=== PATIENT | female | born 1945 | race Caucasian/White ===

== ENCOUNTER 2017-09-02 11:32 | Observation (INO) | payer OTHER ==
[~2017-09-02] VITALS: Ht 157.5 cm; Wt 77.0 kg
[2017-09-02 12:55] LABS: HEMATOCRIT 42.3 % (36.0-46.0); MCH 29.7 PG (29.0-34.0); MCHC 33.8 G/DL (30.0-36.0); MCV 87.9 FL (83-99); MEAN PLAT.VOLUME 9.6 uM^3 (9.5-12.4); PLATELET COUNT 321 K/uL (156-360); RBC DIS.WIDTH-CV 15.6 % (11.8-14.6); RBC DIS.WIDTH-SD 50.1 % (39-53); RED BLOOD COUNT 4.81 M/uL (3.80-5.20); WHITE BLOOD COUNT 6.6 K/uL (4.1-10.2)
[2017-09-02 12:56] LABS: CHLORIDE 108 mEq/L (99-109); POTASSIUM 3.8 mEq/L (3.7-5.4); SODIUM 143 mEq/L (136-147)
[2017-09-02 12:58] LABS: GLUCOSE 88 mg/dL (70-99)
[2017-09-02 13:00] LABS: ANION GAP 8 MEQ/L (2-14); TOTAL BILIRUBIN 0.4 mg/dL (0.0-1.0)
[2017-09-02 13:02] LABS: ALKALINE PHOSPHATASE 56 IU/L (3-129); GFR ESTIMATE (CALCULATED) > 59 mL/min/
[2017-09-02 13:03] LABS: UREA NITROGEN (BUN) 7 mg/dL (9-23)
[2017-09-02 13:08] LABS: TROP-I INTERPRETATION NEGATIVE; TROPONIN-I < 0.01 ng/mL (0.0-0.30)
[2017-09-02] MEDS ORDERED: TYLENOL EXTRA500 MG PO (16:05)
[2017-09-02 16:13] VITALS: BP 159/68
[2017-09-02 18:00] VITALS: BP 137/85
[2017-09-02 19:57] LABS: TYPE OF FLUID PLEURAL
[2017-09-02 20:26] LABS: BODY FLUID LDH 91 IU/L; BODY FLUID PROTEIN 4.1 G/DL
[2017-09-02 21:00] VITALS: BP 103/67
[2017-09-02 21:38] LABS: BODY FLUID RBC'S < 1000 /MM^3 (0-100); BODY FLUID WBC'S 357 /MM^3 (0-500)
[2017-09-02 21:44] LABS: BODY FLUID EOSINOPHILS 0 % (0-25); MONONUCLEAR WBC'S 89 %; POLYNUCLEAR WBC'S 11 % (0-25)
[2017-09-02 23:33] VITALS: BP 115/64
[2017-09-03 03:15] VITALS: BP 114/96
[2017-09-03 05:28] LABS: HEMATOCRIT 40.9 % (36.0-46.0); MCHC 33.5 G/DL (30.0-36.0); MCV 89.5 FL (83-99); MEAN PLAT.VOLUME 9.7 uM^3 (9.5-12.4); PLATELET COUNT 311 K/uL (156-360); RBC DIS.WIDTH-CV 15.8 % (11.8-14.6); RBC DIS.WIDTH-SD 51.9 % (39-53); RED BLOOD COUNT 4.57 M/uL (3.80-5.20); WHITE BLOOD COUNT 7.5 K/uL (4.1-10.2)
[2017-09-03 05:59] LABS: ANION GAP 10 MEQ/L (2-14); CHLORIDE 106 MEQ/L (99-109); GFR ESTIMATE (CALCULATED) > 59 mL/min/; POTASSIUM 4.5 MEQ/L (3.7-5.4); SAMPLE HEMOLYSIS CHECK 0; SAMPLE ICTERIC CHECK 0; SAMPLE LIPEMIA CHECK 0; SODIUM 142 MEQ/L (136-147); UREA NITROGEN (BUN) 10 mg/dL (9-23)
[2017-09-03 06:01] LABS: GLUCOSE 162 mg/dL (70-99)
[2017-09-03 07:27] VITALS: BP 116/63
[2017-09-03 11:55] VITALS: BP 119/66
[2017-09-03] MEDS ORDERED: SPIRIVA1 INHALATI IH (14:00)
[2017-09-03 14:49] LABS: LACTATE DEHYDROGENASE 182 IU/L (20-246)
== END 2017-09-03 15:20 | disposition home or self-care (01) ==
LOC: EME 11:32 → EDOF 14:43 → 5WEST 14:43 → EDOF 14:43 → ENRESERV 14:45 → 5WEST 16:12
PROVIDERS: Internal Medicine; Nurse Practitioner Family
PROC: 0W993ZZ Drainage of Right Pleural Cavity, Percutaneous Approach (ICD-10-PCS; principal; 2017-09-02)
DX: J90 Pleural effusion, not elsewhere classified (principal); J98.11 Atelectasis; M79.89 Other specified soft tissue disorders; Z86.718 Personal history of other venous thrombosis and embolism; Z83.3 Family history of diabetes mellitus; F17.290 Nicotine dependence, other tobacco product, uncomplicated; F17.210 Nicotine dependence, cigarettes, uncomplicated; Z82.0 Family history of epilepsy and other diseases of the nervous system; Z81.1 Family history of alcohol abuse and dependence; Z88.0 Allergy status to penicillin; Z88.2 Allergy status to sulfonamides
CPT/HCPCS: 71010; 71020; 71275; 80048; 80053; 82945; 83615; 83615 91; 83880; 84157; 84484; 85027; 87070; 87116; 87205; 87206; 88108; 88305; 89051; 93005; 93970; 94640; 94799; 99281; 99284; G0378; J1650; J2930

== ENCOUNTER → 2017-10-02 | Outpatient (CLI) | payer OTHER ==
[~2017-10-02] MED LIST: SPIRIVA1 INHALATI IH; TYLENOL EXTRA500 MG PO
== END | disposition home or self-care (01) ==
LOC: RAD 08:46 → EDSTATUS 09:00
PROVIDERS: Internal Medicine Pulmonary Disease
PROC: 0W993ZZ Drainage of Right Pleural Cavity, Percutaneous Approach (ICD-10-PCS; principal; 2017-10-02)
DX: J90 Pleural effusion, not elsewhere classified (principal)
CPT/HCPCS: 76942; 82945; 83615 91; 84157; 87070; 87205; 88108; 88305